=== PATIENT | female | born 1955 | race Caucasian/White ===

== ENCOUNTER 2024-08-04 10:11 | Emergency (ER) | payer MEDICARE, MEDICAID, SELFPAY ==
[2024-08-04 10:32] VITALS: BP 157/81; PULSE 102; RESP 20; TEMP 36.6; O2SAT 96
--- NOTE | 2024-08-04 10:51 | PC.NURSE ---
elmer unwitnessed glf from [facility]. baseline gcs 15 aao x 4. sometime may not be able to get year correct. Pain to left wrist and knee. stroke assessment with EMS negative. Patient has a high anxiety and often begins to outburst in tears. Per EMS [facility] states this is her normal behavior. denies loc. pmh htn, asthma, dm, depression, anxiety. No blood thinners.
[2024-08-04 10:59] VITALS: BP 122/76; PULSE 102; RESP 16; TEMP 36.4; O2SAT 98
--- NOTE | 2024-08-04 11:02 | PC.NURSE ---
Patient also states right elbow hurts but not as bad as her left side
--- NOTE | 2024-08-04 11:18 | XR_ITS ---
Examination: CT brain head without contrast. 2-D sagittal coronal reconstructions Date and time of exam:August 04, 2024 1215 hrs. Indications: Patient fell today with injury to the head, head pain CTDI: vol (mGy):50.7 DLP: (mGycm):966 Technique: Multiple CT axial sections of the brain have been obtained, 5 mm slice thickness. Contrast has not been administered. 2-D sagittal, coronal reconstructions have been obtained Low dose protocols were performed. One or more of the following dose reduction techniques were used; automated exposure control, adjustment of the mA and/or KV according to patient size, use of iterative reconstruction technique. Findings: No significant ventricular enlargement. Intra-axial or extra-axial hemorrhage density is not seen. No mass effect or midline shift Basal cisterns are not remarkable. Fourth ventricle is midline. Cranial vault intact. Impression: Negative for acute hemorrhage, mass effect or midline shift
--- NOTE | 2024-08-04 11:18 | XR_ITS ---
Examination: CT cervical spine without contrast 2-D sagittal reconstructions 2-D coronal reconstructions 3-D reconstructions. Exam date and time:August 04, 2024 1215 hrs. Indications: Patient fell today with injury to the neck, neck pain CTDI:vol (mGy) 8.55 DLP: (mGycm) 169 Technique: Multiple 2 mm axial sections of the cervical spine have been obtained. The coronal and sagittal reconstructions have been obtained. 3-D reconstructions have been obtained. Low dose protocols were performed. One or more of the following dose reduction techniques were used; automated exposure control, adjustment of the mA and/or KV according to patient size, use of iterative reconstruction technique. Findings: Axial sections demonstrate intact base of the skull. C1 exhibit satisfactory relationship to the odontoid. No acute cervical vertebral body fracture seen. Alignment posterior spinous processes satisfactory. Impression: No acute cervical fracture.
--- NOTE | 2024-08-04 11:18 | XR_ITS ---
Examination: Hand, left 3 views Technique: Hand AP, oblique, lateral 3 views Date and time of exam: August 04, 2024 11:21 AM Indications: Injury to the hand today, hand pain Findings: Severe osteopenia No acute fracture No dislocation Impression: No acute fracture Given the patient's severe osteopenia, recommend short-term follow-up films of the hand as clinically warranted
--- NOTE | 2024-08-04 11:18 | XR_ITS ---
Examination: Knee, left , 3 views Technique: Knee AP, lateral, oblique 3 views Date and time of exam: August 05, 2024 11:21 AM Indications: Injury to the knee today, knee pain. Findings: Severe osteopenia No acute fracture No dislocation Impression: No acute fracture Given the severe osteopenia, recommend short-term follow-up knee films as clinically warranted
--- NOTE | 2024-08-04 11:19 | PD.EDADULT ---
ED General RME/HPI General Chief complaint: Fall Stated complaint: GROUND LEVEL FALL Time Seen by Provider: 08/04/24 11:14 Arrival date/time: 08/04/24 10:11 CC: Left hand pain right knee pain status post fall the patient is hard of hearing severe Parkinson's with tremors denies LOC or lightly sees cells by the story that she slipped but did not pass out. Review the medical records the patient is not on any blood thinners. Related Data Home Medications ?Medication ?Instructions ?Recorded ?Confirmed insulin glargine 100 unit/mL 27 unit SQ HS ##0 07/02/13 12/24/18 subcutaneous solution (Lantus U-100 Insulin) albuterol sulfate 90 mcg/actuation 2 puff inhalation Q6HR PRN 12/08/15 12/24/18 aerosol inhaler (ProAir HFA) SHORTNESS OF BREATH #0 inhalations magnesium hydroxide 400 mg/5 mL 30 ml PO QDAY PRN CONSTIPATION #0 02/03/16 12/24/18 oral suspension (Milk of Magnesia) mL carbidopa 10 mg-levodopa 100 mg 1 tab PO QID #0 tabs 10/19/16 12/24/18 tablet (Sinemet) clonazepam 0.5 mg tablet (Klonopin) 0.5 mg PO TID #0 tabs 10/19/16 12/24/18 docusate sodium 250 mg capsule 250 mg PO Q6HR PRN CONSTIPATION #0 10/19/16 12/24/18 (DOK) caps lisinopril 5 mg tablet 5 mg PO QDAY #0 tabs 10/19/16 12/24/18 paroxetine HCl 20 mg tablet (Paxil) 20 mg PO QAM #0 tabs 10/19/16 12/24/18 amantadine HCl 100 mg tablet 100 mg PO BID 12/24/18 12/24/18 Allergies Allergy/AdvReac Type Severity Reaction Status Date / Time codeine AdvReac Mild RECOVERVED Verified 12/24/18 18:19 ADDICT propoxyphene AdvReac Mild SICK TO Verified 12/24/18 18:19 STOMACH morphine AdvReac Unknown SICK TO Verified 12/24/18 18:19 STOMACH Review of Systems Review of Systems Narrative Review of Systems: GEN: No fever, no chills, no weight loss EYES: No discharge, no visual changes, no pain HEENT: No ear pain, no congestion, no sore throat PULM: No shortness of breath, no cough, no congestion CV: No chest pain, no dyspnea on exertion, no palpitations GI: No nausea, no vomiting, no diarrhea, no pain, no constipation : No frequency, no urgency, no dysuria MUSC/SKEL: + joint pain, no back pain SKIN: No rash PSYCH: No hallucinations, no depression HEME/LYMPH: No easy bleeding or bruising tendencies NEURO: No weakness, no headache Past Medical History Past Medical History NEUROLOGIC: Positive Parkinson's Disease CARDIAC: Negative Congestive Heart Failure RESPIRATORY: Negative Chronic Obstructive Pulmonary Disease (COPD) GENITOURINARY: Negative Renal Disease ENDOCRINE: Positive Diabetes Mellitus Type 2; Negative Diabetes Mellitus Type 1 Social History SMOKING STATUS: Never smoker ED Exam Narrative Physical exam: [General: Obese not in any acute distress Head normocephalic HEENT: Within acceptable limits Neck is supple nontender Chest equal chest rise nontender to palpation Respiratory: Clear to auscultation no wheezes crackles or rubs CV: Rate rhythm is regular no murmurs rubs or clicks Abdomen is distended secondary to body habitus soft nontender no masses positive bowel sounds all 4 quadrants Back: No CVA tenderness no spinous process tenderness from cervical spine thoracic and lumbar spine Skin: Intact no petechiae rash induration ulceration or crepitus Extremities: Right knee, no edema no erythema abrasions ecchymosis decreased range of motion secondary to deconditioning, comparable to the right knee. Left hand full range of motion tenderness to the dorsum of the hand no significant edema erythema ecchymosis. Moving all extremity against resistance cap refill less than 2 seconds neurosensory intact Neuro: Awake alert oriented x3 Glascow coma 15 no focal deficits] Course Quality Measures none Orders Category Date Time Status CT cervical spine wo con Stat Exams 08/04/24 11:[address] head/brain wo con Stat Exams 08/04/24 11:18 Completed XR hand comp LT min 3V Stat Exams 08/04/24 11:18 Taken XR knee LT 3V Stat Exams 08/04/24 11:18 Taken Urinalysis, C/S if Indicated Stat Lab 08/04/24 11:22 Ordered Vital Signs Vital signs: Vital Signs Temperature 97.9 F 08/04/24 10:32 Pulse Rate 102 H 08/04/24 10:32 Respiratory Rate 20 08/04/24 10:32 Blood Pressure 157/81 H 08/04/24 10:32 Pulse Oximetry (%) 96 08/04/24 10:32 Oxygen Delivery Method Room Air 08/04/24 10:32 [facility] Patient data External records reviewed:: [facility] previous records and EMS form Clinical information provided by:: patient and EMS Social determinants that could affect healthcare access:: none Patient has the following chronic illnesses:: Parkinson's hypertension diabetes How is presenting disease/condition affected by chronic disease/condition?: uneffected by Evaluation data The following diagnostics were reviewed and interpreted by me:: lab results and radiology exam(s) Lab and/or radiology exams considered but not ordered:: Hand and knee x-rays interpreted by me showed no acute malformation that requires emergent or immediate intervention CT head and C-spine as interpreted by the radiologist shows no acute finding requires emergent or immediate intervention Interpretation Summary: Fall hand contusion knee contusion Medications Medications considered but not ordered:: None Medication administrations:: None Consultations Consultation(s) initiated? (list below): No Diagnosis Differential Diagnosis ED Complaint MDM: Closed head injury neck fracture hand fracture Most likely diagnosis given after review of the tests above:: Fall hand contusion knee contusion Admission Indicated Admission indicated?: not indicated Explain why admission is indicated or not indicated:: Stable for outpatient follow-up Admission Request Was there a request for admission?: No Disposition Plan Disposition Plan: Discharge Discharge Attestation Discharge Attestation: The patient and all family members were given an opportunity to ask questions and understood the discharge instructions. Discharge instructions specifically effects, indications for sooner follow up or return to the emergency department, and the expected course of current diagnosis. Patient condition: Stable Medical Decision Making Differential Diagnosis Differential Diagnosis: Closed head injury neck fracture hand fracture Discharge Plan Plan Patient Disposition: HOME (Self Care) Patient condition on transfer: Stable Prescriptions/Referrals Prescriptions/Med Rec: No Action Lantus U-100 Insulin 1 UNIT/0.01 ML unit 27 unit SQ HS Qty: 0 albuterol sulfate [ProAir HFA] 8.5 GM HFA aerosol inhaler 2 puff Inhalation Q6HR PRN (Reason: SHORTNESS OF BREATH) Qty: 0 magnesium hydroxide [Milk of Magnesia] 30 ML/CUP suspension 30 ml PO QDAY PRN (Reason: CONSTIPATION) Qty: 0 clonazepam [Klonopin] 0.5 MG tablet 0.5 mg PO TID Qty: 0 paroxetine HCl [Paxil] 20 MG tablet 20 mg PO QAM Qty: 0 carbidopa-levodopa [Sinemet] 10-100 mg Tablet 1 tab PO QID Qty: 0 lisinopril 5 MG tablet 5 mg PO QDAY Qty: 0 docusate sodium [DOK] 250 MG capsule 250 mg PO Q6HR PRN (Reason: CONSTIPATION) Qty: 0 amantadine HCl 100 mg Tablet 100 mg PO BID Referrals: Myles Alvarez MD [Primary Care Provider] - In 1 week Problem List Clinical Impression: Fall, Contusion of hand, Contusion of knee Patient/Caregiver Discharge Instructions Education Materials: ED Contusion, Lower Extremity, ED Hand Contusion, Preventing Falls Moving Safely ... Additional Instructions: Take Tylenol for pain follow-up with your primary care provider. Print Language: Amharic Stand Alone Forms: Vivian Award Info., Patient Portal Info Letter, Work/School Release PA/PHOTOGRAPHER NEWS Supervising Physician PA/PHOTOGRAPHER NEWS Supervising Physician: Yeison Cabrera ENP
[2024-08-04 12:12] VITALS: BMI 37.8
[2024-08-04 12:55] VITALS: BP 142/72; PULSE 96; RESP 20; TEMP 36.6; O2SAT 100
--- NOTE | 2024-08-04 15:10 | PC.CC ---
Addendum entered by Geoffrey Huitron II 08/04/24 15:54: 1539-Call from [facility] ETA set for 1900. Original Note: [employer] engaged for transport for pt back to [facility]. 1307-CAll to [facility], unable to transport pt at this time. 1413-Call to [facility] for gurney transport. Reference #[id number]. PCS and face sheet uploaded to [facility].
[2024-08-04 15:14] VITALS: BP 159/92; PULSE 99; RESP 22; TEMP 37.1; O2SAT 99
== END 2024-08-04 17:46 | disposition home or self-care (01) ==
PROVIDERS: Emergency Provider Emergency Medicine; PCP Family Medicine
DX: S60.222A Contusion of left hand, initial encounter (principal); S80.02XA Contusion of left knee, initial encounter; S19.9XXA Unspecified injury of neck, initial encounter; S09.90XA Unspecified injury of head, initial encounter; W01.0XXA Fall on same level from slipping, tripping and stumbling without subsequent striking against object, initial encounter
CPT/HCPCS: 70450; 72125; 73130; 73562; 81001; 99284